=== PATIENT | male | born 1960 | race Caucasian/White ===

== ENCOUNTER 2019-04-15 22:41 | Inpatient (IN) | payer SELFPAY ==
[~2019-04-15] VITALS: Ht 182.9 cm; Wt 61.2 kg
[2019-04-15] MEDS ORDERED: ZIPRASIDONE IM 20 MG VIAL. IM ONE (22:45)
[2019-04-15] MEDS ORDERED: ONDANSETRON PF 4 MG/2 ML VIAL. IV ONE (23:00)
[2019-04-15] MEDS ORDERED: IV NORMAL SALINE 1000ML BAG 1,000 ML IV ONE (23:00)
[2019-04-15 23:03] LABS: BASO % 0 % (0-3); EOS % 0 % (0-3); HEMATOCRIT 43.1 % (39.0-53.0); HEMOGLOBIN 14.7 g/dL (13.0-17.5); LYMPH # 1.4 x10^3/uL (1.0-4.8); LYMPH % 8 % (24-48); MEAN CORPUSCULAR HEMOGLOBIN 30 pg (25-35); MEAN CORPUSCULAR HGB CONC 34 g/dL (31-37); MEAN CORPUSCULAR VOLUME 87 fL (79-100); MONO # 1.8 x10^3/uL (0.0-1.1); MONO % 10 % (0-9); NEUT % 82 % (31-73); PLATELET COUNT 259 x10^3/uL (140-400); RED BLOOD COUNT 4.97 x10^6/uL (4.30-5.70); RED CELL DISTRIBUTION WIDTH 14.6 % (11.5-14.5); WHITE BLOOD COUNT 18.3 x10^3/uL (4.0-11.0)
[2019-04-15 23:14] LABS: CALCIUM 10.1 mg/dL (8.5-10.1); CREATININE 3.1 mg/dL (0.7-1.3); GFR 20.9; POTASSIUM 4.3 mmol/L (3.5-5.1)
[2019-04-15 23:16] LABS: ACETAMIN < 2 mcg/ml (10-30); ETHANOL < 10 mg/dL (0-10); SALIC < 2.8 mg/dL (2.8-20.0)
[2019-04-15 23:17] LABS: PROTHROMBIN TIME PATIENT 13.2 SEC (11.7-14.0)
[2019-04-15 23:21] LABS: ALBUMIN 5.1 g/dL (3.4-5.0); ALBUMIN/GLOBULIN RATIO 1.5 (1.0-1.7); MAGNESIUM 2.6 mg/dL (1.8-2.4); TOTAL BILIRUBIN 1.1 mg/dL (0.2-1.0); TOTAL PROTEIN 8.5 g/dL (6.4-8.2)
[2019-04-16 00:44] LABS: % BANDS 1 % (0-9); % LYMPHS 12 % (24-48); % MONOS 8 % (0-10); % SEGS 79 % (35-66); PLT ESTIMATE ADEQUATE (ADEQUATE)
--- NOTE | 2019-04-16 01:14 | PHYS DOC ---
Past Medical History Past Medical History: No Pertinent History Past Medical History Unable to obtain due to altered mental status Additional Past Surgical Histo: Renal Transplant? Past Surgical History Unable to obtain due to altered mental status Smoking: Cigarettes Drug Use: Methamphetamine Social History Unable to obtain due to altered mental status Adult General Chief Complaint Chief Complaint: DRUG ABUSE HPI HPI 58-year-old male presents with report of uncontrollable shaking with associated nausea and vomiting over the last few days. Patient does report methamphetamine abuse. Patient was apparently dropped off in front of fire station with report of bee sting to his arm. EMS reports no stinger was noted. Patient poor historian as he appears under the influence of illicit drugs. History of present illness limited due to altered mental status Review of Systems Review of Systems Constitutional: Denies fever or chills Respiratory: Denies shortness of breath GI: Reports nausea and vomiting Neurological: Altered mental status Review of systems limited due to altered mental status Current Medications Current Medications Current Medications Medications (Trade) Dose Ordered Sig/Maya Start Time Stop Time Status Last Admin Dose Admin Lorazepam (Ativan Inj) 1 mg 1X ONCE 04/16/19 01:00 04/16/19 01:01 DC Ondansetron HCl (Zofran) 4 mg 1X ONCE 04/15/19 23:00 04/16/19 00:53 DC 04/15/19 23:09 4 MG Sodium Chloride 1,000 ml @ 1,000 mls/hr 1X ONCE 04/15/19 23:00 04/16/19 00:53 DC 04/15/19 23:09 1,000 MLS/HR Ziprasidone (Geodon Im) 20 mg 1X ONCE 04/15/19 22:45 04/16/19 00:53 DC 04/15/19 22:45 20 MG Allergies Allergies Allergies Coded Allergies Type Severity Reaction Last Updated Verified No Known Drug Allergies 04/16/19 No Physical Exam Physical Exam Constitutional: Well developed, well nourished, patient with uncontrollable jerking and twitching, appears obtunded HENT: Normocephalic, atraumatic, oropharynx dry Eyes: PERRL dilated, EOMI, conjunctiva normal, no discharge, horizontal nystagmus noted Neck: Normal range of motion, no tenderness, supple Cardiovascular: Heart rate tachycardic, regular rhythm Lungs & Thorax: Bilateral breath sounds clear to auscultation, no wheezing Abdomen: Soft, no tenderness Skin: Warm, dry, no erythema, no rash Extremities: No tenderness, ROM intact, no edema Neurologic: Alert and oriented X 2, poor historian, moving all 4 extremities, no focal deficits noted Psychologic: Affect anxious and agitated, judgement abnormal Current Patient Data Vital Signs Vital Signs Date Time Temp Pulse Resp B/P (MAP) Pulse Ox O2 Delivery O2 Flow Rate FiO2 04/15/19 22:50 98.3 103 30 135/79 (97) 98 Room Air 98.3 Lab Values Laboratory Tests Test 04/15/19 22:45 White Blood Count 18.3 x10^3/uL (4.0-11.0) H Red Blood Count 4.97 x10^6/uL (4.30-5.70) Hemoglobin 14.7 g/dL (13.0-17.5) Hematocrit 43.1 % (39.0-53.0) Mean Corpuscular Volume 87 fL (79-100) Mean Corpuscular Hemoglobin 30 pg (25-35) Mean Corpuscular Hemoglobin Concent 34 g/dL (31-37) Red Cell Distribution Width 14.6 % (11.5-14.5) H Platelet Count 259 x10^3/uL (140-400) Neutrophils (%) (Auto) 82 % (31-73) H Lymphocytes (%) (Auto) 8 % (24-48) L Monocytes (%) (Auto) 10 % (0-9) H Eosinophils (%) (Auto) 0 % (0-3) Basophils (%) (Auto) 0 % (0-3) Neutrophils # (Auto) 15.0 x10^3uL (1.8-7.7) H Lymphocytes # (Auto) 1.4 x10^3/uL (1.0-4.8) Monocytes # (Auto) 1.8 x10^3/uL (0.0-1.1) H Eosinophils # (Auto) 0.0 x10^3/uL (0.0-0.7) Basophils # (Auto) 0.0 x10^3/uL (0.0-0.2) Segmented Neutrophils % 79 % (35-66) H Band Neutrophils % 1 % (0-9) Lymphocytes % 12 % (24-48) L Monocytes % 8 % (0-10) Platelet Estimate Adequate (ADEQUATE) Prothrombin Time 13.2 SEC (11.7-14.0) Prothrombin Time INR 1.0 (0.8-1.1) PTT 27 SEC (24-38) Sodium Level 133 mmol/L (136-145) L Potassium Level 4.3 mmol/L (3.5-5.1) Chloride Level 92 mmol/L (98-107) L Carbon Dioxide Level 19 mmol/L (21-32) L Anion Gap 22 (6-14) H Blood Urea Nitrogen 57 mg/dL (8-26) H Creatinine 3.1 mg/dL (0.7-1.3) H Estimated GFR (Cockcroft-Gault) 20.9 BUN/Creatinine Ratio 18 (6-20) Glucose Level 87 mg/dL (70-99) Lactic Acid Level 2.9 mmol/L (0.4-2.0) H Calcium Level 10.1 mg/dL (8.5-10.1) Magnesium Level 2.6 mg/dL (1.8-2.4) H Total Bilirubin 1.1 mg/dL (0.2-1.0) H Aspartate Amino Transferase (AST) 163 U/L (15-37) H Alanine Aminotransferase (ALT) 68 U/L (16-63) H Alkaline Phosphatase 121 U/L (46-116) H Creatine Kinase 8714 U/L (39-308) H Creatine Kinase MB (Mass) 116.6 ng/mL (0.0-3.6) H Creatine Kinase MB Relative Index 1.3 % (0-4) Troponin I Quantitative < 0.017 ng/mL (0.000-0.055) Total Protein 8.5 g/dL (6.4-8.2) H Albumin 5.1 g/dL (3.4-5.0) H Albumin/Globulin Ratio 1.5 (1.0-1.7) Lipase 82 U/L (73-393) Salicylates Level < 2.8 mg/dL (2.8-20.0) L Salicylate Last Dose Date Unknown Salicylate Last Dose Time Unknown Acetaminophen Level < 2 mcg/ml (10-30) L Acetaminophen Last Dose Date Unknown Acetaminophen Last Dose Time Unknown Ethyl Alcohol Level < 10 mg/dL (0-10) Laboratory Tests 04/15/19 22:45 Laboratory Tests 04/15/19 22:45 EKG EKG [] Radiology/Procedures Radiology/Procedures [] Course & Med Decision Making Course & Med Decision Making Pertinent Labs reviewed. (See chart for details) Patient presents via EMS with history of present illness and physical exam concerning for illicit drug use. Patient does report methamphetamine abuse. Patient apparently also has a history of renal transplant. Patient significantly agitated upon arrival. Geodon 20 mg IM therefore provided. Labs obtained and posted to chart. CPK greater than 8700. Creatinine 3.1. Lactic acid also elevated. No prior laboratory data available for comparison. IV fluid hydration provided. Patient requiring admission for further evaluation and treatment. Discussed with Dr. Nieto (hospitalist) who is in agreement with admission. Nephrology consult placed. Discussed findings and plan with patient, who acknowledges understanding and agreement. Dragon Disclaimer Dragon Disclaimer This electronic medical record was generated, in whole or in part, using a voice recognition dictation system. Departure Departure Impression: Primary Impression: Rhabdomyolysis Additional Impressions: Acute renal failure Methamphetamine abuse Lactic acidosis Disposition: ADMITTED INPATIENT Admitting Physician: Other (Riffel) Condition: GUARDED Referrals: NO PCP (PCP) Critical Care Time Critical care time was 30 minutes which includes time at bedside, spent in discussion of patient's care with specialists and/or family members, with inte rpretation of laboratory and/or radiological studies and is exclusive of procedures. Problem Qualifiers Primary Impression: Rhabdomyolysis Rhabdomyolysis type: non-traumatic Qualified Codes: M62.82 - Rhab domyolysis Additional Impressions: Acute renal failure Acute renal failure type: unspecified Qualified Codes: N17.9 - Acute kidne y failure, unspecified MATEO ARCE DO April 16, 2019 01:14
[2019-04-16 01:29] LABS: BILIRUBIN,URINE NEGATIVE (NEG); CLARITY,URINE CLEAR; COLOR,URINE YELLOW; NITRITE,URINE NEGATIVE (NEG); PROTEIN,URINE 100 mg/dL (NEG-TRACE); UROBILINOGEN,URINE 0.2 mg/dL (0.2 mg/dL)
[2019-04-16] MEDS ORDERED: IV NORMAL SALINE 1000ML BAG 1,000 ML IV ONE (01:30)
[2019-04-16] MEDS ORDERED: ONDANSETRON PF 4 MG/2 ML VIAL. IV PRN ×2 (01:30→08:30)
[2019-04-16 01:33] LABS: BACTERIA,URINE 0 /HPF (0-FEW); RBC,URINE OCC /HPF (0-2); WBC,URINE OCC /HPF (0-4)
[2019-04-16 01:34] LABS: AMORPHOUS SEDIMENT,UR PRESENT /HPF; HYALINE CASTS, URINE MODERATE /HPF; SQUAMOUS EPITHELIAL CELL,UR OCC /LPF
[2019-04-16 01:35] LABS: AMPHETAMINE/METHAMPHETAMINE POS (NEG); BARBITURATES NEG (NEG); BENZODIAZEPINES NEG (NEG); CANNABINOIDS POS (NEG); COCAINE NEG (NEG); METHADONE NEG (NEG); OPIATES NEG (NEG); PHENCYCLIDINE NEG (NEG)
[2019-04-16] MEDS ORDERED: SODIUM BICARBONATE VIAL 100 MEQ in IV 1/2 NORMAL SALINE 1,000 ML IV ONE (02:00)
--- NOTE | 2019-04-16 03:42 | NUR ---
Patient was given Geodon in ER due to combativeness and when arrived to the floor patient was asleep and unable to answer admission questions. VSS, head-to-toe assessment was performed and charted. Patient resting comfortably, will get admission questions answered when pt is more alert. Will continue to monitor.
[2019-04-16 03:57] VITALS: BP 139/55
[2019-04-16 07:05] VITALS: BP 127/74
[2019-04-16] MEDS ORDERED: LORazepam 0.5 MG TABLET PO PRN (08:30)
[2019-04-16] MEDS ORDERED: ACETAMINOPHEN 500 MG TABLET PO PRN (08:30)
[2019-04-16] MEDS ORDERED: IV NORMAL SALINE 1000ML BAG 1,000 ML IV SCH (08:30)
[2019-04-16] MEDS ORDERED: NICOTINE 21MG PATCH. TD PRN (08:30)
[2019-04-16] MEDS ORDERED: chlordiazePOXIDE HCL 25 MG CAPSULE PO PRN (08:30)
[2019-04-16 08:49] LABS: CALCIUM 8.6 mg/dL (8.5-10.1); CREATININE 1.8 mg/dL (0.7-1.3); GFR 39.1; POTASSIUM 3.8 mmol/L (3.5-5.1)
[2019-04-16 10:33] VITALS: BP 121/68
--- NOTE | 2019-04-16 10:41 | PDOC2 ---
CONSULT Date of Consult Date of Consult DATE: 04/16/19 TIME: 10:36 Reason for Consult Reason for Consult: SOFÍA Referring Physician Referring Physician: RHONA Identification/Chief Complaint Chief Complaint CONFUSION Source Source: Chart review History of Present Illness Reason for Visit: THIS IS A 58 YR OLD CONFUSED MAN DROPPED OFF IN FRONT OF THE FIRE STATION AND THEN BROUGHT HERE. NOTED TO HAVE BEEN ABUSING MET BASED ON HIS UDS. ALSO NOTED TO HAVE A CPK OF 8718 AND A REPORT OF N/V. HE IS CONFUSED AND DID NOT PROVIDE ANY HX ON ADMIT. NO KNOWN CKD HX THAT I CAN FIND. UA POS FOR DIP STICK BLOOD BUT RARE ON HPF Past Medical History Past Medical History UNKNOWN Family History Family History: No Significant Current Problem List Problem List Problems Medical Problems: (1) Acute renal failure Status: Acute (2) Lactic acidosis Status: Acute (3) Methamphetamine abuse Status: Acute (4) Rhabdomyolysis Status: Acute Current Medications Current Medications Current Medications Ziprasidone (Geodon Im) 20 mg 1X ONCE IM Last administered on 04/15/19at 22:45; Start 04/15/19 at 22:45; Stop 04/16/19 at 00:53; Status DC Sodium Chloride 1,000 ml @ 1,000 mls/hr 1X ONCE IV Last administered on 04/15/19at 23:09; Start 04/15/19 at 23:00; Stop 04/16/19 at 00:53; Status DC Ondansetron HCl (Zofran) 4 mg 1X ONCE IV Last administered on 04/15/19at 23:09; Start 04/15/19 at 23:00; Stop 04/16/19 at 00:53; Status DC Lorazepam (Ativan Inj) 1 mg 1X ONCE IV ; Start 04/16/19 at 01:00; Stop 04/16/19 at 01:01; Status DC Sodium Chloride 1,000 ml @ 1,000 mls/hr 1X ONCE IV Last administered on 04/16/19at 01:23; Start 04/16/19 at 01:30; Stop 04/16/19 at 02:29; Status DC Ondansetron HCl (Zofran) 4 mg PRN Q8HRS PRN IV NAUSEA/VOMITING 1ST CHOICE; Start 04/16/19 at 01:30; Stop 04/16/19 at 08:31; Status DC Sodium Bicarbonate 100 meq/Sodium Chloride 1,100 ml @ 125 mls/hr 1X ONCE IV Last administered on 04/16/19at 02:47; Start 04/16/19 at 02:00; Stop 04/16/19 at 10:47 Lorazepam (Ativan Inj) 1 mg PRN Q4HRS PRN IV ANXIETY / AGITATION; Start 04/16/19 at 01:30 Ondansetron HCl (Zofran) 4 mg PRN Q6HRS PRN IV NAUSEA/VOMITING 1ST CHOICE; Start 04/16/19 at 08:30 Lorazepam (Ativan) 0.5 mg PRN Q8HRS PRN PO ANXIETY / AGITATION; Start 04/16/19 at 08:30 Chlordiazepoxide (Librium) 25 mg PRN Q6HRS PRN PO ANXIETY / AGITATION; Start 04/16/19 at 08:30 Sodium Chloride 1,000 ml @ 125 mls/hr Q8H IV Last administered on 04/16/19at 08:30; Start 04/16/19 at 08:30 Acetaminophen (Tylenol) 500 mg PRN Q6HRS PRN PO MILD PAIN / TEMP; Start 04/16/19 at 08:30 Nicotine (Nicoderm Cq 21mg) 1 patch PRN DAILY PRN TD SMOKING CESSATION; Start 04/16/19 at 08:30 Allergies Allergies: Coded Allergies: No Known Drug Allergies (Unverified , 04/16/19) ROS Review of System CONFUSED Physical Exam General: Cooperative HEENT: Atraumatic, PERRLA, Other (DRY MUCOSA) Lungs: Clear to auscultation Abdomen: Normal bowel sounds, Soft Extremities: No clubbing, No cyanosis Skin: No rashes, No breakdown Neuro: Other (CONFUSED) Psych/Mental Status: Other (FLAT ) MUSCULOSKELETAL: No deformity, No swelling Vitals VITALS Vital Signs Date Time Temp Pulse Resp B/P (MAP) Pulse Ox O2 Delivery O2 Flow Rate FiO2 04/16/19 10:33 98.2 69 17 121/68 (85) 96 Room Air 98.2 Labs Labs Laboratory Tests Test 04/15/19 22:45 04/16/19 01:21 04/16/19 04:30 04/16/19 06:50 White Blood Count 18.3 x10^3/uL (4.0-11.0) Red Blood Count 4.97 x10^6/uL (4.30-5.70) Hemoglobin 14.7 g/dL (13.0-17.5) Hematocrit 43.1 % (39.0-53.0) Mean Corpuscular Volume 87 fL (79-100) Mean Corpuscular Hemoglobin 30 pg (25-35) Mean Corpuscular Hemoglobin Concent 34 g/dL (31-37) Red Cell Distribution Width 14.6 % (11.5-14.5) Platelet Count 259 x10^3/uL (140-400) Neutrophils (%) (Auto) 82 % (31-73) Lymphocytes (%) (Auto) 8 % (24-48) Monocytes (%) (Auto) 10 % (0-9) Eosinophils (%) (Auto) 0 % (0-3) Basophils (%) (Auto) 0 % (0-3) Neutrophils # (Auto) 15.0 x10^3uL (1.8-7.7) Lymphocytes # (Auto) 1.4 x10^3/uL (1.0-4.8) Monocytes # (Auto) 1.8 x10^3/uL (0.0-1.1) Eosinophils # (Auto) 0.0 x10^3/uL (0.0-0.7) Basophils # (Auto) 0.0 x10^3/uL (0.0-0.2) Segmented Neutrophils % 79 % (35-66) Band Neutrophils % 1 % (0-9) Lymphocytes % 12 % (24-48) Monocytes % 8 % (0-10) Platelet Estimate Adequate (ADEQUATE) Prothrombin Time 13.2 SEC (11.7-14.0) Prothromb Time International Ratio 1.0 (0.8-1.1) Activated Partial Thromboplast Time 27 SEC (24-38) Sodium Level 133 mmol/L (136-145) 138 mmol/L (136-145) Potassium Level 4.3 mmol/L (3.5-5.1) 3.8 mmol/L (3.5-5.1) Chloride Level 92 mmol/L (98-107) 101 mmol/L (98-107) Carbon Dioxide Level 19 mmol/L (21-32) 18 mmol/L (21-32) Anion Gap 22 (6-14) 19 (6-14) Blood Urea Nitrogen 57 mg/dL (8-26) 47 mg/dL (8-26) Creatinine 3.1 mg/dL (0.7-1.3) 1.8 mg/dL (0.7-1.3) Estimated GFR (Cockcroft-Gault) 20.9 39.1 BUN/Creatinine Ratio 18 (6-20) Glucose Level 87 mg/dL (70-99) 95 mg/dL (70-99) Lactic Acid Level 2.9 mmol/L (0.4-2.0) 0.9 mmol/L (0.4-2.0) Calcium Level 10.1 mg/dL (8.5-10.1) 8.6 mg/dL (8.5-10.1) Magnesium Level 2.6 mg/dL (1.8-2.4) Total Bilirubin 1.1 mg/dL (0.2-1.0) Aspartate Amino Transf (AST/SGOT) 163 U/L (15-37) Alanine Aminotransferase (ALT/SGPT) 68 U/L (16-63) Alkaline Phosphatase 121 U/L (46-116) Creatine Kinase 8714 U/L (39-308) 7659 U/L (39-308) Creatine Kinase MB (Mass) 116.6 ng/mL (0.0-3.6) Creatine Kinase MB Relative Index 1.3 % (0-4) Troponin I Quantitative < 0.017 ng/mL (0.000-0.055) < 0.017 ng/mL (0.000-0.055) 0.017 ng/mL (0.000-0.055) Total Protein 8.5 g/dL (6.4-8.2) Albumin 5.1 g/dL (3.4-5.0) Albumin/Globulin Ratio 1.5 (1.0-1.7) Lipase 82 U/L (73-393) Salicylates Level < 2.8 mg/dL (2.8-20.0) Salicylate Last Dose Date Unknown Salicylate Last Dose Time Unknown Acetaminophen Level < 2 mcg/ml (10-30) Acetaminophen Last Dose Date Unknown Acetaminophen Last Dose Time Unknown Ethyl Alcohol Level < 10 mg/dL (0-10) Urine Collection Type Unknown Urine Color Yellow Urine Clarity Clear Urine pH 5.0 Urine Specific [place] 1.020 Urine Protein 100 mg/dL (NEG-TRACE) Urine Glucose (UA) Negative mg/dL (NEG) Urine Ketones (Stick) 15 mg/dL (NEG) Urine Blood Large (NEG) Urine Nitrite Negative (NEG) Urine Bilirubin Negative (NEG) Urine Urobilinogen Dipstick 0.2 mg/dL (0.2 mg/dL) Urine Leukocyte Esterase Negative (NEG) Urine RBC Occ /HPF (0-2) Urine WBC Occ /HPF (0-4) Urine Squamous Epithelial Cells Occ /LPF Urine Amorphous Sediment Present /HPF Urine Bacteria 0 /HPF (0-FEW) Urine Hyaline Casts Moderate /HPF Urine Mucus Mod /LPF Urine Opiates Screen Neg (NEG) Urine Methadone Screen Neg (NEG) Urine Barbiturates Neg (NEG) Urine Phencyclidine Screen Neg (NEG) Urine Amphetamine/Methamphetamine Pos (NEG) Urine Benzodiazepines Screen Neg (NEG) Urine Cocaine Screen Neg (NEG) Urine Cannabinoids Screen Pos (NEG) Urine Ethyl Alcohol Neg (NEG) Laboratory Tests Test 04/15/19 22:45 04/16/19 01:21 04/16/19 04:30 04/16/19 06:50 White Blood Count 18.3 x10^3/uL (4.0-11.0) Red Blood Count 4.97 x10^6/uL (4.30-5.70) Hemoglobin 14.7 g/dL (13.0-17.5) Hematocrit 43.1 % (39.0-53.0) Mean Corpuscular Volume 87 fL (79-100) Mean Corpuscular Hemoglobin 30 pg (25-35) Mean Corpuscular Hemoglobin Concent 34 g/dL (31-37) Red Cell Distribution Width 14.6 % (11.5-14.5) Platelet Count 259 x10^3/uL (140-400) Neutrophils (%) (Auto) 82 % (31-73) Lymphocytes (%) (Auto) 8 % (24-48) Monocytes (%) (Auto) 10 % (0-9) Eosinophils (%) (Auto) 0 % (0-3) Basophils (%) (Auto) 0 % (0-3) Neutrophils # (Auto) 15.0 x10^3uL (1.8-7.7) Lymphocytes # (Auto) 1.4 x10^3/uL (1.0-4.8) Monocytes # (Auto) 1.8 x10^3/uL (0.0-1.1) Eosinophils # (Auto) 0.0 x10^3/uL (0.0-0.7) Basophils # (Auto) 0.0 x10^3/uL (0.0-0.2) Segmented Neutrophils % 79 % (35-66) Band Neutrophils % 1 % (0-9) Lymphocytes % 12 % (24-48) Monocytes % 8 % (0-10) Platelet Estimate Adequate (ADEQUATE) Prothrombin Time 13.2 SEC (11.7-14.0) Prothromb Time International Ratio 1.0 (0.8-1.1) Activated Partial Thromboplast Time 27 SEC (24-38) Sodium Level 133 mmol/L (136-145) 138 mmol/L (136-145) Potassium Level 4.3 mmol/L (3.5-5.1) 3.8 mmol/L (3.5-5.1) Chloride Level 92 mmol/L (98-107) 101 mmol/L (98-107) Carbon Dioxide Level 19 mmol/L (21-32) 18 mmol/L (21-32) Anion Gap 22 (6-14) 19 (6-14) Blood Urea Nitrogen 57 mg/dL (8-26) 47 mg/dL (8-26) Creatinine 3.1 mg/dL (0.7-1.3) 1.8 mg/dL (0.7-1.3) Estimated GFR (Cockcroft-Gault) 20.9 39.1 BUN/Creatinine Ratio 18 (6-20) Glucose Level 87 mg/dL (70-99) 95 mg/dL (70-99) Lactic Acid Level 2.9 mmol/L (0.4-2.0) 0.9 mmol/L (0.4-2.0) Calcium Level 10.1 mg/dL (8.5-10.1) 8.6 mg/dL (8.5-10.1) Magnesium Level 2.6 mg/dL (1.8-2.4) Total Bilirubin 1.1 mg/dL (0.2-1.0) Aspartate Amino Transf (AST/SGOT) 163 U/L (15-37) Alanine Aminotransferase (ALT/SGPT) 68 U/L (16-63) Alkaline Phosphatase 121 U/L (46-116) Creatine Kinase 8714 U/L (39-308) 7659 U/L (39-308) Creatine Kinase MB (Mass) 116.6 ng/mL (0.0-3.6) Creatine Kinase MB Relative Index 1.3 % (0-4) Troponin I Quantitative < 0.017 ng/mL (0.000-0.055) < 0.017 ng/mL (0.000-0.055) 0.017 ng/mL (0.000-0.055) Total Protein 8.5 g/dL (6.4-8.2) Albumin 5.1 g/dL (3.4-5.0) Albumin/Globulin Ratio 1.5 (1.0-1.7) Lipase 82 U/L (73-393) Salicylates Level < 2.8 mg/dL (2.8-20.0) Salicylate Last Dose Date Unknown Salicylate Last Dose Time Unknown Acetaminophen Level < 2 mcg/ml (10-30) Acetaminophen Last Dose Date Unknown Acetaminophen Last Dose Time Unknown Ethyl Alcohol Level < 10 mg/dL (0-10) Urine Collection Type Unknown Urine Color Yellow Urine Clarity Clear Urine pH 5.0 Urine Specific [place] 1.020 Urine Protein 100 mg/dL (NEG-TRACE) Urine Glucose (UA) Negative mg/dL (NEG) Urine Ketones (Stick) 15 mg/dL (NEG) Urine Blood Large (NEG) Urine Nitrite Negative (NEG) Urine Bilirubin Negative (NEG) Urine Urobilinogen Dipstick 0.2 mg/dL (0.2 mg/dL) Urine Leukocyte Esterase Negative (NEG) Urine RBC Occ /HPF (0-2) Urine WBC Occ /HPF (0-4) Urine Squamous Epithelial Cells Occ /LPF Urine Amorphous Sediment Present /HPF Urine Bacteria 0 /HPF (0-FEW) Urine Hyaline Casts Moderate /HPF Urine Mucus Mod /LPF Urine Opiates Screen Neg (NEG) Urine Methadone Screen Neg (NEG) Urine Barbiturates Neg (NEG) Urine Phencyclidine Screen Neg (NEG) Urine Amphetamine/Methamphetamine Pos (NEG) Urine Benzodiazepines Screen Neg (NEG) Urine Cocaine Screen Neg (NEG) Urine Cannabinoids Screen Pos (NEG) Urine Ethyl Alcohol Neg (NEG) Assessment/Plan Assessment/Plan IMP SOFÍA WITH CR OF 3.6-HYFVUELML-EB CKD KNOWN DEHYDRATION RHABDOMYOLYSIS-CK OF 8718 MET ABUSE PLAN HYDRATION F/U CPK WILL FOLLOW ARMIN BRENNAN MD April 16, 2019 10:41
--- NOTE | 2019-04-16 11:06 | PDOC1 ---
History and Physical Date of Admission Date of Admission DATE: 04/16/19 TIME: 11:02 Identification/Chief Complaint Chief Complaint Muscle pain, shakes, alcohol intoxication Source Source: Caregiver, Chart review, Patient History of Present Illness History of Present Illness 58-year-old white male, works as a automotive glass mechanic, pleasant, brought in because of the above chief complaint. CPK levels over 7000 with a lactate that was initially 2.9 and after boluses by ER came down to normal 0.9. WBC 18.3 but no source of infection. Tachycardic, hypertensive. Admits to methamphetamine use. Drinks heavy alcohol too. Renal consulted with IV fluids. But I see the patient now and is wanting to leave. He has a daughter that cannot pick him up until late and he wants to go home now. He is agreeable to sign AMA. He walked around the halls 1 with me and RN and he is steady in terms of gait. Aware of his risks of leaving AMA. He lives couple blocks down here and said he could walk. We are arranging for a cab ride for him. He had some maybe oliguria? Carroll catheter was placed at ER. That has been voiding fine. We will DC Carroll catheter. Heavy cessation alcohol, illicit drug use counseling done today. RN is my witnessed. He does not wish to have repeat CPK levels drawn before discharging today He will sign AMA He denies any body shakes currently which was POA Past Medical History Cardiovascular: No pertinent hx Pulmonary: No pertinent hx GI: No pertinent hx Heme/Onc: No pertinent hx Hepatobiliary: No pertinent hx Psych: No pertinent hx Rheumatologic: No pertinent hx Infectious disease: No pertinent hx ENT: No pertinent hx Renal/: No pertinent hx Endocrine: No pertinent hx Dermatology: No pertinent hx Past Surgical History Past Surgical History: No pertinent history Family History Family History: No Significant Social History Smoke: <1 pack per day ALCOHOL: heavy Drugs: Cocaine Current Problem List Problem List Problems Medical Problems: (1) Acute renal failure Status: Acute (2) Lactic acidosis Status: Acute (3) Methamphetamine abuse Status: Acute (4) Rhabdomyolysis Status: Acute Current Medications Current Medications Current Medications Ziprasidone (Geodon Im) 20 mg 1X ONCE IM Last administered on 04/15/19at 22:45; Start 04/15/19 at 22:45; Stop 04/16/19 at 00:53; Status DC Sodium Chloride 1,000 ml @ 1,000 mls/hr 1X ONCE IV Last administered on 04/15/19at 23:09; Start 04/15/19 at 23:00; Stop 04/16/19 at 00:53; Status DC Ondansetron HCl (Zofran) 4 mg 1X ONCE IV Last administered on 04/15/19at 23:09; Start 04/15/19 at 23:00; Stop 04/16/19 at 00:53; Status DC Lorazepam (Ativan Inj) 1 mg 1X ONCE IV ; Start 04/16/19 at 01:00; Stop 04/16/19 at 01:01; Status DC Sodium Chloride 1,000 ml @ 1,000 mls/hr 1X ONCE IV Last administered on 04/16/19at 01:23; Start 04/16/19 at 01:30; Stop 04/16/19 at 02:29; Status DC Ondansetron HCl (Zofran) 4 mg PRN Q8HRS PRN IV NAUSEA/VOMITING 1ST CHOICE; Start 04/16/19 at 01:30; Stop 04/16/19 at 08:31; Status DC Sodium Bicarbonate 100 meq/Sodium Chloride 1,100 ml @ 125 mls/hr 1X ONCE IV Last administered on 04/16/19at 02:47; Start 04/16/19 at 02:00; Stop 04/16/19 at 10:47; Status DC Lorazepam (Ativan Inj) 1 mg PRN Q4HRS PRN IV ANXIETY / AGITATION; Start 04/16/19 at 01:30 Ondansetron HCl (Zofran) 4 mg PRN Q6HRS PRN IV NAUSEA/VOMITING 1ST CHOICE; Start 04/16/19 at 08:30 Lorazepam (Ativan) 0.5 mg PRN Q8HRS PRN PO ANXIETY / AGITATION; Start 04/16/19 at 08:30 Chlordiazepoxide (Librium) 25 mg PRN Q6HRS PRN PO ANXIETY / AGITATION; Start 04/16/19 at 08:30 Sodium Chloride 1,000 ml @ 125 mls/hr Q8H IV Last administered on 04/16/19at 08:30; Start 04/16/19 at 08:30 Acetaminophen (Tylenol) 500 mg PRN Q6HRS PRN PO MILD PAIN / TEMP; Start 04/16/19 at 08:30 Nicotine (Nicoderm Cq 21mg) 1 patch PRN DAILY PRN TD SMOKING CESSATION; Start 04/16/19 at 08:30 Allergies Allergies: Coded Allergies: No Known Drug Allergies (Unverified , 04/16/19) ROS Review of System A 14 point ROS was completed with the following noted as positive: Other systems reviewed and negative. \CONSTITUTIONAL: No fever or chills EYES: No recent changes SKIN: No rash or itching CARDIOVASCULAR: No chest pain, syncope, palpitations, or edema RESPIRATORY: No SOB or cough GASTROINTESTINAL: No nausea, vomiting or abdominal pain NEUROLOGICAL: No headaches or weakness ENDOCRINE: No cold or heat intolerance GENITOURINARY: No urgency or frequency of urination MUSCULOSKELETAL: No back pain or joint pain LYMPHATICS: No enlarged lymph nodes PSYCHIATRIC: No anxiety or depression Physical Exam General: Alert, Oriented X3, Cooperative, No acute distress HEENT: Atraumatic, PERRLA, EOMI Lungs: Clear to auscultation, Normal air movement Heart: S1S2, RRR, no thrills, no rubs, no gallops, no murmurs Cardiovascular: S1, S2 Abdomen: Normal bowel sounds, Soft, No tenderness, No hepatosplenomegaly, No masses Male Genitals Exam: normal genitalia, normal prostate Rectal Exam: not examined PELVIC: Nml ext genitalia Extremities: No clubbing, No cyanosis, No edema, Normal pulses, No tenderness/swelling Skin: No rashes, No breakdown, No significant lesion Neuro: Normal gait, Normal speech, Strength at 5/5 X4 ext, Normal tone, Sensation intact, Cranial nerves 3-12 NL, Reflexes 2+ Psych/Mental Status: Mental status NL, Mood NL Vitals Vitals Vital Signs Date Time Temp Pulse Resp B/P (MAP) Pulse Ox O2 Delivery O2 Flow Rate FiO2 04/16/19 10:33 98.2 69 17 121/68 (85) 96 Room Air 98.2 Labs Labs Laboratory Tests Test 04/15/19 22:45 04/16/19 01:21 04/16/19 04:30 04/16/19 06:50 White Blood Count 18.3 x10^3/uL (4.0-11.0) Red Blood Count 4.97 x10^6/uL (4.30-5.70) Hemoglobin 14.7 g/dL (13.0-17.5) Hematocrit 43.1 % (39.0-53.0) Mean Corpuscular Volume 87 fL (79-100) Mean Corpuscular Hemoglobin 30 pg (25-35) Mean Corpuscular Hemoglobin Concent 34 g/dL (31-37) Red Cell Distribution Width 14.6 % (11.5-14.5) Platelet Count 259 x10^3/uL (140-400) Neutrophils (%) (Auto) 82 % (31-73) Lymphocytes (%) (Auto) 8 % (24-48) Monocytes (%) (Auto) 10 % (0-9) Eosinophils (%) (Auto) 0 % (0-3) Basophils (%) (Auto) 0 % (0-3) Neutrophils # (Auto) 15.0 x10^3uL (1.8-7.7) Lymphocytes # (Auto) 1.4 x10^3/uL (1.0-4.8) Monocytes # (Auto) 1.8 x10^3/uL (0.0-1.1) Eosinophils # (Auto) 0.0 x10^3/uL (0.0-0.7) Basophils # (Auto) 0.0 x10^3/uL (0.0-0.2) Segmented Neutrophils % 79 % (35-66) Band Neutrophils % 1 % (0-9) Lymphocytes % 12 % (24-48) Monocytes % 8 % (0-10) Platelet Estimate Adequate (ADEQUATE) Prothrombin Time 13.2 SEC (11.7-14.0) Prothromb Time International Ratio 1.0 (0.8-1.1) Activated Partial Thromboplast Time 27 SEC (24-38) Sodium Level 133 mmol/L (136-145) 138 mmol/L (136-145) Potassium Level 4.3 mmol/L (3.5-5.1) 3.8 mmol/L (3.5-5.1) Chloride Level 92 mmol/L (98-107) 101 mmol/L (98-107) Carbon Dioxide Level 19 mmol/L (21-32) 18 mmol/L (21-32) Anion Gap 22 (6-14) 19 (6-14) Blood Urea Nitrogen 57 mg/dL (8-26) 47 mg/dL (8-26) Creatinine 3.1 mg/dL (0.7-1.3) 1.8 mg/dL (0.7-1.3) Estimated GFR (Cockcroft-Gault) 20.9 39.1 BUN/Creatinine Ratio 18 (6-20) Glucose Level 87 mg/dL (70-99) 95 mg/dL (70-99) Lactic Acid Level 2.9 mmol/L (0.4-2.0) 0.9 mmol/L (0.4-2.0) Calcium Level 10.1 mg/dL (8.5-10.1) 8.6 mg/dL (8.5-10.1) Magnesium Level 2.6 mg/dL (1.8-2.4) Total Bilirubin 1.1 mg/dL (0.2-1.0) Aspartate Amino Transf (AST/SGOT) 163 U/L (15-37) Alanine Aminotransferase (ALT/SGPT) 68 U/L (16-63) Alkaline Phosphatase 121 U/L (46-116) Creatine Kinase 8714 U/L (39-308) 7659 U/L (39-308) Creatine Kinase MB (Mass) 116.6 ng/mL (0.0-3.6) Creatine Kinase MB Relative Index 1.3 % (0-4) Troponin I Quantitative < 0.017 ng/mL (0.000-0.055) < 0.017 ng/mL (0.000-0.055) 0.017 ng/mL (0.000-0.055) Total Protein 8.5 g/dL (6.4-8.2) Albumin 5.1 g/dL (3.4-5.0) Albumin/Globulin Ratio 1.5 (1.0-1.7) Lipase 82 U/L (73-393) Salicylates Level < 2.8 mg/dL (2.8-20.0) Salicylate Last Dose Date Unknown Salicylate Last Dose Time Unknown Acetaminophen Level < 2 mcg/ml (10-30) Acetaminophen Last Dose Date Unknown Acetaminophen Last Dose Time Unknown Ethyl Alcohol Level < 10 mg/dL (0-10) Urine Collection Type Unknown Urine Color Yellow Urine Clarity Clear Urine pH 5.0 Urine Specific Novi 1.020 Urine Protein 100 mg/dL (NEG-TRACE) Urine Glucose (UA) Negative mg/dL (NEG) Urine Ketones (Stick) 15 mg/dL (NEG) Urine Blood Large (NEG) Urine Nitrite Negative (NEG) Urine Bilirubin Negative (NEG) Urine Urobilinogen Dipstick 0.2 mg/dL (0.2 mg/dL) Urine Leukocyte Esterase Negative (NEG) Urine RBC Occ /HPF (0-2) Urine WBC Occ /HPF (0-4) Urine Squamous Epithelial Cells Occ /LPF Urine Amorphous Sediment Present /HPF Urine Bacteria 0 /HPF (0-FEW) Urine Hyaline Casts Moderate /HPF Urine Mucus Mod /LPF Urine Opiates Screen Neg (NEG) Urine Methadone Screen Neg (NEG) Urine Barbiturates Neg (NEG) Urine Phencyclidine Screen Neg (NEG) Urine Amphetamine/Methamphetamine Pos (NEG) Urine Benzodiazepines Screen Neg (NEG) Urine Cocaine Screen Neg (NEG) Urine Cannabinoids Screen Pos (NEG) Urine Ethyl Alcohol Neg (NEG) Laboratory Tests Test 04/15/19 22:45 04/16/19 01:21 04/16/19 04:30 04/16/19 06:50 White Blood Count 18.3 x10^3/uL (4.0-11.0) Red Blood Count 4.97 x10^6/uL (4.30-5.70) Hemoglobin 14.7 g/dL (13.0-17.5) Hematocrit 43.1 % (39.0-53.0) Mean Corpuscular Volume 87 fL (79-100) Mean Corpuscular Hemoglobin 30 pg (25-35) Mean Corpuscular Hemoglobin Concent 34 g/dL (31-37) Red Cell Distribution Width 14.6 % (11.5-14.5) Platelet Count 259 x10^3/uL (140-400) Neutrophils (%) (Auto) 82 % (31-73) Lymphocytes (%) (Auto) 8 % (24-48) Monocytes (%) (Auto) 10 % (0-9) Eosinophils (%) (Auto) 0 % (0-3) Basophils (%) (Auto) 0 % (0-3) Neutrophils # (Auto) 15.0 x10^3uL (1.8-7.7) Lymphocytes # (Auto) 1.4 x10^3/uL (1.0-4.8) Monocytes # (Auto) 1.8 x10^3/uL (0.0-1.1) Eosinophils # (Auto) 0.0 x10^3/uL (0.0-0.7) Basophils # (Auto) 0.0 x10^3/uL (0.0-0.2) Segmented Neutrophils % 79 % (35-66) Band Neutrophils % 1 % (0-9) Lymphocytes % 12 % (24-48) Monocytes % 8 % (0-10) Platelet Estimate Adequate (ADEQUATE) Prothrombin Time 13.2 SEC (11.7-14.0) Prothromb Time International Ratio 1.0 (0.8-1.1) Activated Partial Thromboplast Time 27 SEC (24-38) Sodium Level 133 mmol/L (136-145) 138 mmol/L (136-145) Potassium Level 4.3 mmol/L (3.5-5.1) 3.8 mmol/L (3.5-5.1) Chloride Level 92 mmol/L (98-107) 101 mmol/L (98-107) Carbon Dioxide Level 19 mmol/L (21-32) 18 mmol/L (21-32) Anion Gap 22 (6-14) 19 (6-14) Blood Urea Nitrogen 57 mg/dL (8-26) 47 mg/dL (8-26) Creatinine 3.1 mg/dL (0.7-1.3) 1.8 mg/dL (0.7-1.3) Estimated GFR (Cockcroft-Gault) 20.9 39.1 BUN/Creatinine Ratio 18 (6-20) Glucose Level 87 mg/dL (70-99) 95 mg/dL (70-99) Lactic Acid Level 2.9 mmol/L (0.4-2.0) 0.9 mmol/L (0.4-2.0) Calcium Level 10.1 mg/dL (8.5-10.1) 8.6 mg/dL (8.5-10.1) Magnesium Level 2.6 mg/dL (1.8-2.4) Total Bilirubin 1.1 mg/dL (0.2-1.0) Aspartate Amino Transf (AST/SGOT) 163 U/L (15-37) Alanine Aminotransferase (ALT/SGPT) 68 U/L (16-63) Alkaline Phosphatase 121 U/L (46-116) Creatine Kinase 8714 U/L (39-308) 7659 U/L (39-308) Creatine Kinase MB (Mass) 116.6 ng/mL (0.0-3.6) Creatine Kinase MB Relative Index 1.3 % (0-4) Troponin I Quantitative < 0.017 ng/mL (0.000-0.055) < 0.017 ng/mL (0.000-0.055) 0.017 ng/mL (0.000-0.055) Total Protein 8.5 g/dL (6.4-8.2) Albumin 5.1 g/dL (3.4-5.0) Albumin/Globulin Ratio 1.5 (1.0-1.7) Lipase 82 U/L (73-393) Salicylates Level < 2.8 mg/dL (2.8-20.0) Salicylate Last Dose Date Unknown Salicylate Last Dose Time Unknown Acetaminophen Level < 2 mcg/ml (10-30) Acetaminophen Last Dose Date Unknown Acetaminophen Last Dose Time Unknown Ethyl Alcohol Level < 10 mg/dL (0-10) Urine Collection Type Unknown Urine Color Yellow Urine Clarity Clear Urine pH 5.0 Urine Specific Novi 1.020 Urine Protein 100 mg/dL (NEG-TRACE) Urine Glucose (UA) Negative mg/dL (NEG) Urine Ketones (Stick) 15 mg/dL (NEG) Urine Blood Large (NEG) Urine Nitrite Negative (NEG) Urine Bilirubin Negative (NEG) Urine Urobilinogen Dipstick 0.2 mg/dL (0.2 mg/dL) Urine Leukocyte Esterase Negative (NEG) Urine RBC Occ /HPF (0-2) Urine WBC Occ /HPF (0-4) Urine Squamous Epithelial Cells Occ /LPF Urine Amorphous Sediment Present /HPF Urine Bacteria 0 /HPF (0-FEW) Urine Hyaline Casts Moderate /HPF Urine Mucus Mod /LPF Urine Opiates Screen Neg (NEG) Urine Methadone Screen Neg (NEG) Urine Barbiturates Neg (NEG) Urine Phencyclidine Screen Neg (NEG) Urine Amphetamine/Methamphetamine Pos (NEG) Urine Benzodiazepines Screen Neg (NEG) Urine Cocaine Screen Neg (NEG) Urine Cannabinoids Screen Pos (NEG) Urine Ethyl Alcohol Neg (NEG) VTE Prophylaxis Ordered VTE Prophylaxis Devices: Yes VTE Pharmacological Prophylaxi: Yes Assessment/Plan Assessment/Plan Rhabdomyolysis - CPK 7K Methamphetamine use Heavy drinker Leukocytosis SIRS no sepsis, no organ dysfunction Accelerated hypertension in the back and of methamphetamine use Tachycardia in the back of methamphetamine use plan SOFÍA, VMN PLAN: Wants to leave AMA-he will sign Heavy education counseling Patient seen and examined, discussed with RN at bedside CELSO MCADAMS MD April 16, 2019 11:06
--- NOTE | 2019-04-16 12:38 | NUR ---
Pt left AMA via taxi cab. Pt escorted out by security. Pt states that he had "brand new black work shoes" on when he was admitted, and they are not in his room. This RN searched the closets, drawers, under the bed, and the bathroom, and was unable to locate his shoes. This RN then called the emergency department whom were also unable to locate his shoes. Nursing special services supervisor, Erica, notified. The special services supervisor was also unable to locate his shoes. Pt then stated he is also missing his "silver belt buckle" and "belt" whom were "gifts from his son." Pt did leave with his orange t-shirt on, and pair of blue jeans.
== END 2019-04-16 12:00 | disposition left against medical advice (07) | DRG 917 ==
LOC: ER 22:41 → 6 SOUTH 04-16 01:15
PROVIDERS: ADMIT Internal Medicine; ATTEND Internal Medicine
DX: T43.621A Poisoning by amphetamines, accidental (unintentional), initial encounter (principal); N17.0 Acute kidney failure with tubular necrosis; M62.82 Rhabdomyolysis; R65.10 Systemic inflammatory response syndrome (SIRS) of non-infectious origin without acute organ dysfunction; E87.2 Acidosis; E86.0 Dehydration; D72.829 Elevated white blood cell count, unspecified; F10.129 Alcohol abuse with intoxication, unspecified; F15.10 Other stimulant abuse, uncomplicated; F17.210 Nicotine dependence, cigarettes, uncomplicated; I10 Essential (primary) hypertension; T63.441A Toxic effect of venom of bees, accidental (unintentional), initial encounter; Z53.21 Procedure and treatment not carried out due to patient leaving prior to being seen by health care provider; Y92.89 Other specified places as the place of occurrence of the external cause; R00.0 Tachycardia, unspecified
CPT/HCPCS: 36415; 51702; 80048; 80053; 80307; 80329; 81001; 82550; 82553; 83605; 83690; 83735; 84484; 85007; 85025; 85610; 85730; 96361; 96372; 96374; G0480; J2405; J3486; J7030; 99285-25